=== PATIENT | female | born 1995 | race Two or more races ===

== ENCOUNTER 2016-11-16 14:45 | Emergency (ER) | payer OTHER ==
[~2016-11-16] VITALS: Ht 154.9 cm; Wt 68.0 kg
[~2016-11-16 14:45] MED LIST: NKM
--- NOTE | 2016-11-16 15:03 | Emergency Room Report ---
History of Present Illness General Chief Complaint: Lower Extremity Injury Source: Patient, EMS Present Illness HPI 21 YOF with right ankle pain s/p trip and fall, ?eversion of right foot, while helping mom out of shower. Patient unable to ambulate on foot. Placed in ice bath at home. No previous injury to right foot/ankle. Denies injury pain anywhere else. Pain is 8/10, non radiating, mostly on top of foot and both sides of ankle. Denies pain to right knee, tib/fib. Able to move toes. Allergies: Coded Allergies: No Known Allergies (Unverified , 11/16/16) Patient History Past Medical History: none Past Surgical History: none Pertinent Family History: none Social History: Denies: alcohol use, drug use, smoking Last Menstrual Period: 11/15/16 Now: No Immunizations: UTD Reviewed Nursing Documentation: PMH: Agreed, PSxH: Agreed Nursing Documentation-PMH Past Medical History: No Stated History Review of Systems All Other Systems: negative except mentioned in HPI Physical Exam Vital Signs Date Time Temp Pulse Resp B/P Pulse Ox O2 Delivery O2 Flow Rate FiO2 11/16/16 14:40 98.8 94 16 122/73 99 Room Air Sp02 EP Interpretation: reviewed, normal General Appearance: normal inspection, well appearing, no apparent distress, alert Head: atraumatic ENT: normal ENT inspection, hearing grossly normal, normal voice Neck: normal inspection, full range of motion, supple, no bony tend Respiratory: normal inspection, lungs clear, normal breath sounds, no respiratory distress, no retraction, no wheezing Cardiovascular #1: regular rate, rhythm, no edema Musculoskeletal: normal inspection, back normal, normal range of motion, Naida' s Sign negative, other - Right foot: Obvious swelling lateral malleoli > medial. And dorsum of foot. ROM intact. 2+ dorsalis pedis pulse Neurologic: normal inspection, alert, oriented x3, responsive, technical support representative III-XII nml as tested, speech normal Psychiatric: normal inspection, judgement/insight normal, mood/affect normal Skin: normal inspection, normal color, no rash Procedures Splinting Splinting : Consent: Verbal Hand-Made Type: plaster Splint: U-shaped ankle splint Pre-Proc Neuro Vasc Exam: normal Post-Proc Neuro Vasc Exam: normal Patient Tolerated: Well Complications: None Medical Decision Making Diagnostic Impression: Primary Impression: Right ankle sprain Qualified Codes: S93.401A - Sprain of unspecified ligament of right ankle, initial encounter ER Course Right ankle sprain. No acute fx on ED review of xrays of foot/ankle. Hard splint placed given significant pain still Advised Ortho followup DC home RICE Other X-Ray Diagnostic Results Other X-Ray Diagnostic Results : X-Ray Ordered: Right ankle EP Interpretation: Yes Findings: no fractures, no dislocation, no soft tissue swelling Number of Views: 3 Other Impression Right foot ED review 2 views No acute fx, dislocation or soft tissue swelling Last Vital Signs Date Time Temp Pulse Resp B/P Pulse Ox O2 Delivery O2 Flow Rate FiO2 11/16/16 14:40 98.8 94 16 122/73 99 Room Air Status: improved Disposition: HOME, SELF-CARE MITCHELL LADD M.D. Nov 16, 2016 15:03
[2016-11-16 16:12] VITALS: BP 103/69
--- NOTE | 2016-11-16 16:13 | Diagnostic Imaging Report ---
Indications: PAIN Technique: 3 views of the right foot Comparison: None Findings: No acute fractures. No dislocations. Joint spaces are preserved. No radiopaque foreign body. Normal mineralization. There is mild hallux valgus Impression: No acute process
--- NOTE | 2016-11-16 16:14 | Diagnostic Imaging Report ---
Indication: PAIN Technique: 3 views of the right ankle Comparison: none Findings: There is soft tissue swelling over the lateral malleolus. No acute fractures. No dislocations. Joint spaces are preserved Impression: Soft tissue swelling. No acute bony trauma
[2016-11-16 17:05] VITALS: BP 110/72
[2016-11-16] MEDS ORDERED: EPINEPHrine 1mg/1ml Amp ONE (18:21)
== END 2016-11-16 17:05 | disposition home or self-care (01) ==
LOC: EDBD 14:45 → EMR 16:32
DX: S93.401A Sprain of unspecified ligament of right ankle, initial encounter (principal); W01.0XXA Fall on same level from slipping, tripping and stumbling without subsequent striking against object, initial encounter; Y92.012 Bathroom of single-family (private) house as the place of occurrence of the external cause
CPT/HCPCS: 29515; 73610; 73630; 99283; J0171